=== PATIENT | male | born 1990 | race Caucasian/White ===

== ENCOUNTER 2022-01-03 22:58 | Emergency (ER) | payer MEDICAID, SELFPAY ==
--- NOTE | ~2022-01-03 | XR_ITS ---
EXAMINATION: XR CLAVICLE, LEFT CLINICAL INFORMATION: Loose screws. COMPARISON: Chest radiograph 01/03/2022. TECHNIQUE: Two views of the left clavicle. FINDINGS: There is plate and screw fixation of the left clavicle. There is a separate cannulated screw which is separate from the plate. This appears to be within the bone and is likely placed separately at the previous site of fracture, though there is no prior to compare. Clavicle appears intact. The acromioclavicular joint is well aligned. XR/XR clavicle LT IMPRESSION: Left clavicle with hardware in place. There is a separate cannulated screw seen which appears to be within the bone and separate from the plate. No prior to be able to compare for stability. The bone is intact.
--- NOTE | ~2022-01-03 | XR_ITS ---
EXAMINATION: XR CHEST CLINICAL INFORMATION: Shortness of breath and asthma exacerbation. COMPARISON: Chest radiograph dated from 05/07/2016. TECHNIQUE: PA view of the chest was obtained. FINDINGS: Normal appearance of the cardiomediastinal silhouette. No focal airspace opacities, pleural effusions or pneumothorax. Fixation plate in the left clavicle. From right to left the fifth screw is superiorly displaced questioning loosening/fracture of the hardware at this site. No acute osseous abnormalities. XR/XR chest 1V IMPRESSION: No acute cardiopulmonary findings. Questionable loosening/fracture of one of the screws of the fixation plate within the left clavicle. Correlate with prior images and for point tenderness.
[2022-01-03 23:01] VITALS: BP 136/81; PULSE 101; RESP 22; TEMP 36.4; O2SAT 96; BMI 28.8
--- NOTE | 2022-01-03 23:59 | ED_ITS ---
HPI - Asthma General Chief Complaint: Asthma Stated Complaint: asthma Time Seen by Provider: 01/03/22 23:15 Source: patient Mode of arrival: ambulatory Limitations: no limitations History of Present Illness HPI Narrative: Patient is a 31-year-old male with a past medical history of asthma. He presents emergency department today for evaluation concern for asthma exacerbation with shortness of breath and wheezing after exposure to known allergen; cat. He has been using his albuterol inhaler multiple times without significant relief in addition to albuterol nebulizer. Reports feeling well prior to allergen exposure. Denies possible sick contacts, COVID-19 exposure. Denies fevers, chills, nasal congestion, sore throat, chest pain, palpitations, nausea, vomiting, abdominal pain. Reports that he typically requires oral steroids at least twice a year for asthma exacerbation. Denies any prior intubations. MD complaint: asthma attack , shortness of breath and wheezing Onset (ago): hour(s) Context: allergen exposure Treatments Prior to Arrival: inhaled bronchodilator Related Data Previous Rx's Medication Instructions Recorded prednisone 20 mg tablet 40 mg PO DAILY 5 Days #10 tab 01/04/22 Allergies Allergy/AdvReac Type Severity Reaction Status Date / Time shellfish derived Allergy Unknown HIVES Verified 01/04/22 00:14 [SHELLFISH DERIVED] shell fish Allergy Unknown Hives Uncoded 01/04/22 00:14 Review of Systems Review of Systems: Constitutional : No Fever, No Chills ENT/Mouth : No Hoarseness, No sore throat, No Rhinorrhea Eyes: No Redness, No Discharge, No Vision Changes Cardiovascular : No Chest Pain, positive SOB, positive Dyspnea on Exertion, No Edema Respiratory : no Cough, No Sputum, positive Wheezing, Gastrointestinal : No Nausea, No Vomiting, No Diarrhea, No abdominal Pain Genitourinary : No Dysuria, No Hematuria Musculoskeletal : No joint pain, No Myalgias Skin : No rash Neuro : No Weakness, No Numbness, No Headache Psych : No anxiety, depression Heme/Lymph: No Bruising, No Bleeding Endocrine : No Polyuria, No Polydipsia Yes all other systems are reviewed and are negative [facility] Past Medical History Attestation statement: The following information was validated with the patient. Source: old records reviewed Social History Social History Advance Directives: No Advance Directives Information Provided: Yes Physical Exam Vital Signs: Vital Signs: Last Vital Signs Temp 97.5 F 01/03/22 23:01 Pulse 87 01/04/22 00:10 Resp 18 01/04/22 00:10 BP 136/81 01/03/22 23:01 Pulse Ox 96 01/03/22 23:01 BMI result Body Mass Index 28.8 Vital signs have been reviewed as normal and appeared to be correct. Blood pressure normal.? Heart rate normal.? Respiration rate normal. Temperature normal.? Oxygen saturation normal. Appearance: Alert.?Oriented to person, place and time. No acute distress.?Normal affect. Eyes: Pupils equal, round and reactive to light.? ENT: Pharynx normal.?? Neck: Normal inspection.? Neck supple.?? CVS: Heart sounds normal. Normal heart rate and rhythm.? Pulses normal.?? Respiratory: No respiratory distress, no increased work of breathing or use of accessory muscles. Lung sounds tight with expiratory wheezing bilaterally? Abdomen: Soft and non-tender. Normoactive bowel sounds. No pulsatile mass.?? Skin: Skin warm and dry.? Normal skin color.? Normal skin turgor.?? Extremities: No lower extremity edema.? No calf ttp? Neuro: Moves all extremities spontaneously. Sensation intact bilaterally. CN II- XII intact. No focal neuro deficits. Ambulates with normal steady gait. Course Course Course Narrative: Patient is a 31-year-old male being evaluated for concerns of an asthma exacerbation. Lung sounds are tight bilaterally with expiratory wheezing will provide prednisone 60 mg p.o. and albuterol 7.5 mg nebulizer and then will re- evaluate. History and physical exam not consistent with status asthmaticus, pneumothorax, no risk factors or chest pain to suggest ACS, Wells score 0 therefore unlikely to be PE. Chest x-ray obtained while in triage reveals no acute pathology, however there is incidental finding of questionable loosening/fracture of 1 of the screws of the fixation plate within the left clavicle. Patient reports repair in 2019 at [facility] after an accident. He is followed by Orthopedic still for ongoing leg pain. Denies any recent injuries or fall to the chest or arm. Denies pain, has no point tenderness over the left clavicle. Reevaluation(s) Reevaluation #1: Reports significant improvement in shortness of breath, improved air flow bilaterally, some persistent expiratory wheezing but much improved in comparison. Discussed plans for discharge home with short course of prednisone, and continued use of MDI and nebulizer clear discussed reasons to return to the emergency department. Advised to contact his primary care provider to schedule follow-up appointment in 1-3 days. In addition, advised to contact his orthopedic provider for further follow-up on the loosened screw in the left clavicle. Time: 00:42 [facility] - Asthma Medical Records Attestation: I reviewed the patient's medical records. Imaging Data Chest x-ray: Radiologist's impression: XR/XR chest 1V IMPRESSION: No acute cardiopulmonary findings. ? Questionable loosening/fracture of one of the screws of the fixation plate within the left clavicle. Correlate with prior images and for point tenderness. Discharge Plan Discharge Clinical Impression: Asthma with acute exacerbation Patient Disposition: Home, Self-Care Instructions: Asthma (ED) Additional Instructions: Take prednisone 40 mg daily for 5 days and use your inhalers/nebulizer as prescribed. Avoid allergens. You may return to the emergency department for any new or worsening symptoms or concerns. Please follow-up with your primary care doctor in 1-3 days. Additionally, as mentioned 1 of the screws in your left clavicle repair appears loose on x-ray. You should contact your orthopedic provider tomorrow to discuss this finding and schedule a follow-up appointment Prescriptions: New prednisone 20 mg tablet 40 mg PO DAILY 5 Days Qty: 10 0RF
[2022-01-04] MEDS: Albuterol Sulfate (0.083%) 2.5 MG/3 ML VIAL.NEB 7.5 MG INHALE (00:09)
[2022-01-04 00:10] VITALS: PULSE 87; RESP 18; O2SAT 98
[2022-01-04] MEDS: predniSONE 20 MG TABLET 60 MG PO (00:15)
[2022-01-04 00:54] VITALS: BP 114/67; PULSE 83; RESP 17; O2SAT 97
--- NOTE | 2022-01-04 01:04 | ED.ASTHMA ---
HPI - Asthma General Chief Complaint: Asthma Stated Complaint: asthma Time Seen by Provider: 01/03/22 23:15 Source: patient Mode of arrival: ambulatory Limitations: no limitations History of Present Illness Context: allergen exposure Treatments Prior to Arrival: inhaled bronchodilator Related Data Previous Rx's Medication Instructions Recorded prednisone 20 mg tablet 40 mg PO DAILY 5 Days #10 tab 01/04/22 Allergies Allergy/AdvReac Type Severity Reaction Status Date / Time shellfish derived Allergy Unknown HIVES Verified 01/04/22 00:14 [SHELLFISH DERIVED] shell fish Allergy Unknown Hives Uncoded 01/04/22 00:14 PMFSH Social History Social History Advance Directives: No Advance Directives Information Provided: Yes Physical Exam Vital Signs: Vital Signs: Last Vital Signs Temp 97.5 F 01/03/22 23:01 Pulse 83 01/04/22 00:54 Resp 17 01/04/22 00:54 BP 114/67 01/04/22 00:54 Pulse Ox 97 01/04/22 00:54 BMI result Body Mass Index 28.8 Discharge Plan Discharge Clinical Impression: Asthma with acute exacerbation Patient Disposition: Home, Self-Care Instructions: Asthma (ED) Additional Instructions: Take prednisone 40 mg daily for 5 days and use your inhalers/nebulizer as prescribed. Avoid allergens. You may return to the emergency department for any new or worsening symptoms or concerns. Please follow-up with your primary care doctor in 1-3 days. Additionally, as mentioned 1 of the screws in your left clavicle repair appears loose on x-ray. You should contact your orthopedic provider tomorrow to discuss this finding and schedule a follow-up appointment Prescriptions: New prednisone 20 mg tablet 40 mg PO DAILY 5 Days Qty: 10 0RF
== END 2022-01-04 01:10 | disposition home or self-care (01) ==
PROVIDERS: Emergency Provider Internal Medicine; PCP Internal Medicine
DX: J45.901 Unspecified asthma with (acute) exacerbation (principal)
CPT/HCPCS: 71045; 73000; 94640; 94644; 99284

== ENCOUNTER 2022-11-09 15:49 | Outpatient (REF) | payer MEDICAID, SELFPAY ==
--- NOTE | ~2022-11-09 | XR_ITS ---
EXAMINATION: XR SINUSES CLINICAL INFORMATION: Chronic sinusitis. COMPARISON: None TECHNIQUE: 4 views of the sinuses. FINDINGS: The paranasal sinuses are well-aerated and clear. The bony sinus kessler are intact. The mastoid sinuses are clear. XR/XR sinus min 3V IMPRESSION: Unremarkable sinus exam.
== END 2022-11-09 15:50 | disposition home or self-care (01) ==
LOC: HO.XRAY 15:49
PROVIDERS: PCP Internal Medicine; Visit Provider Physician Assistant
DX: J32.9 Chronic sinusitis, unspecified (principal)
CPT/HCPCS: 70220

== ENCOUNTER 2022-11-19 21:05 | Emergency (ER) | payer MEDICAID, SELFPAY ==
[2022-11-19 21:12] VITALS: BP 149/101; PULSE 138; RESP 26; TEMP 37.1; O2SAT 94; BMI 29.6
--- NOTE | 2022-11-19 21:14 | PC.NURSE ---
Pt noted to have a difficulty time breathing. Audible wheezing noted. DR. Thomas at pt side. PEr provider Rn call Respiratory therapist. They report they are on their way.
--- NOTE | 2022-11-19 21:18 | ED_ITS ---
HPI - Asthma General Chief Complaint: Dyspnea Stated Complaint: Hard time breathing Time Seen by Provider: 11/19/22 21:14 Source: patient Mode of arrival: ambulatory Limitations: no limitations History of Present Illness HPI Narrative: Patient history of asthma with more sick for last 6 months been using inhaler mo re often. Patient has a new girlfriend who has cats at home and she frequently visits his house likely the cause for frequent episodes of asthma. Over the weekend patient stated the friend house today since morning notice wheezing got worse during the day tried multiple puffs and nebulizing treatment without much relief no chest pain no fever no chills Related Data Previous Rx's Medication Instructions Recorded prednisone 20 mg tablet 40 mg PO DAILY 5 days #10 tabs 01/04/22 montelukast 10 mg tablet 10 mg PO QPM #30 tabs 11/19/22 (Singulair) prednisone 20 mg tablet 40 mg PO DAILY #10 tabs 11/19/22 Allergies Allergy/AdvReac Type Severity Reaction Status Date / Time shellfish derived Allergy Unknown HIVES Verified 01/04/22 00:14 [SHELLFISH DERIVED] shell fish Allergy Unknown Hives Uncoded 01/04/22 00:14 Review of Systems Review of Systems: Yes all other systems are reviewed and are negative [facility] Social History Social History Advance Directives: No Advance Directives Information Provided: Yes Physical Exam Vital Signs: Vital Signs: Last Vital Signs Temp 98.8 F 11/19/22 21:12 Pulse 124 H 11/19/22 22:25 Resp 20 11/19/22 22:25 BP 149/101 H 11/19/22 21:12 Pulse Ox 94 11/19/22 21:12 O2 Del Method 11/19/22 21:12 BMI result Body Mass Index 29.6 Appearance: Alert. Oriented X3. In moderate distress unable to speak full sentence Eyes: PERRLA, No Nystagmus ENT: Pharynx normal. Oral Mucosa moist Neck: Normal inspection. Neck supple. CVS: Normal heart rate and rhythm. Pulses normal. Respiratory: Moderate respiratory distress with bilateral wheezing Abdomen: Soft and nontender. Bowel sounds are present, no mass palpable, no CVA tenderness Skin: Skin warm and dry. Normal skin color. Normal skin turgor. Extremities: No lower extremity edema. No calf tenderness Neuro: Oriented X 3. No motor deficit. Medications Administered Discontinued Medications Generic Name Dose Route Start Last Admin Trade Name Dilipq PRN Reason Stop Dose Admin Albuterol Sulfate 7.5 mg 11/19/22 22:17 11/19/22 22:23 Albuterol Sulfate (0.083%) 2.5 Mg/3 Ml Vial.Neb INHALE 11/19/22 22:18 7.5 mg ONCE ONE Administration Albuterol Sulfate 7.5 mg/ 0 mg 11/19/22 21:14 11/19/22 21:21 Albuterol/Ipratropium 3 ml INHALE 11/19/22 21:15 1 each ONCE ONE Administration Dexamethasone Sodium Phosphate 10 mg 11/19/22 21:14 11/19/22 21:20 Dexamethasone Sod Phosphate 10 Mg/Ml Vial IVPUSH 11/19/22 21:15 10 mg ONCE ONE Administration Magnesium Sulfate 2 gm in 50 mls @ 100 mls/hr 11/19/22 21:14 11/19/22 21:20 Magnesium Sulfate/H2o IV 11/19/22 21:43 100 mls/hr ONCE ONE Administration Sodium Chloride 1,000 mls @ 999 mls/hr 11/19/22 21:16 11/19/22 21:21 Ns IV 11/19/22 22:16 999 mls/hr .Q1H1M ONE Administration Medical Decision Making Medical Decision Making [facility] Narrative: Patient's status asthmaticus received continuous nebulizing treatment x2 IV steroid IV medication feeling much better saturating 94% room air will discharge patient home Lab Data [facility] Lab Attestation statement: I reviewed the patient's lab results. 11/19/22 21:22 11/19/22 21:22 Labs: Lab Results 11/19/22 11/19/22 Range/Units 21:22 21:22 WBC 11.4 H (4.8-10.8) X10*3/uL RBC 6.23 H (4.60-5.80) X10*6/uL Hgb 17.4 (14.0-18.0) g/dl Hct 50.4 (42.0-52.0) % MCV 80.9 (80.0-98.0) fL MCH 27.9 (27.0-33.0) pg MCHC 34.5 (31.0-36.0) g/dl RDW 12.7 (11.0-16.0) % Plt Count 267 (160-400) X10*3/uL MPV 8.7 L (9.4-12.4) fL Immature Gran % (Auto) 0.2 (0.0-0.4) % Neut % (Auto) 37.5 L (45-73) % Lymph % (Auto) 45.7 H (20-40) % [place] % (Auto) 8.5 (2-11) % Eos % (Auto) 7.7 H (0-4) % Baso % (Auto) 0.4 (0-2) % Lymph # (Auto) 5.2 H (1.2-4.9) X10*3/uL [place] # (Auto) 1.0 (0.1-1.2) X10*3/uL Eos # (Auto) 0.9 H (0.0-0.4) X10*3/uL Baso # (Auto) 0.1 (0.0-0.2) X10*3/uL Abs Immat Gran (auto) 0.02 (0.00-0.03) X10*3/uL Absolute Neuts (auto) 4.3 (2.0-8.3) x10*3/uL Absolute Nucleated RBC 0.000 (0.0-0.012) X10*3/uL Nucleated RBC % (auto) 0.0 (0.0-0.2) /100WBC Smear Tech's Comments VERIFIED Sodium 145 (135-145) mmol/L Potassium 3.8 (3.3-5.1) mmol/L Chloride 108 (96-108) mmol/L Carbon Dioxide 24 (22-29) mmol/L Anion Gap 17 (12-20) BUN 8 L (9-16) mg/dL Creatinine 1.01 (0.5-1.4) mg/dL Estim Creat Clear Calc 115.5 Estimated GFR > 60 Random Glucose 118 H (60-115) mg/dL Calcium 10.2 (8.4-10.2) mg/dL Discharge Plan Discharge Clinical Impression: Asthmaticus, status Patient Disposition: Home, Self-Care Instructions: Asthma (ED) Additional Instructions: Avoid contact with cats Continued to use a nebulizing/inhaler every 4-6 hours as advised Prednisone and Singulair as prescribed Follow the PCP if not better Prescriptions: New prednisone 20 mg tablet 40 mg PO DAILY Qty: 10 0RF montelukast [Singulair] 10 mg tablet 10 mg PO QPM Qty: 30 0RF No Action prednisone 20 mg tablet 40 mg PO DAILY 5 Days Qty: 10 0RF
[2022-11-19] MEDS: Magnesium Sulfate/H2O 2 GM/50 ML PIGGYBACK IV (21:20)
[2022-11-19] MEDS: dexAMETHasone sod phosphate 10 MG/ML VIAL IVPUSH (21:20)
[2022-11-19] MEDS: 0.9 % Sodium Chloride 1,000 ML 999 ML IV (21:21)
[2022-11-19 21:22] VITALS: PULSE 120; RESP 20; O2SAT 95
[2022-11-19 21:35] LABS: Basophils Absolute Auto 0.1 X10*3/uL (0.0-0.2); Basophils Percent Auto 0.4 % (0-2); Eosinophils Absolute Auto 0.9 X10*3/uL (0.0-0.4); Eosinophils Percent Auto 7.7 % (0-4); Hematocrit 50.4 % (42.0-52.0); Hemoglobin 17.4 g/dl (14.0-18.0); Imm Gran Abs Auto 0.02 X10*3/uL (0.00-0.03); Imm Gran Pct Auto 0.2 % (0.0-0.4); Lymphocytes Absolute Auto 5.2 X10*3/uL (1.2-4.9); Lymphocytes Percent Auto 45.7 % (20-40); MANUAL DIFF FLAG SCAN; Mean Corpuscular HGB Conc 34.5 g/dl (31.0-36.0); Mean Corpuscular Hemoglobin 27.9 pg (27.0-33.0); Mean Corpuscular Volume 80.9 fL (80.0-98.0); Mean Platelet Volume 8.7 fL (9.4-12.4); Monocytes Percent Auto 8.5 % (2-11); Neutrophils Absolute Auto 4.3 x10*3/uL (2.0-8.3); Neutrophils Percent Auto 37.5 % (45-73); Platelet Count 267 X10*3/uL (160-400); Red Blood Count 6.23 X10*6/uL (4.60-5.80); Red Cell Distribution Width 12.7 % (11.0-16.0); SCAN SMEAR FLAG 1; White Blood Count 11.4 X10*3/uL (4.8-10.8)
[2022-11-19 21:41] LABS: Anion Gap 17 (12-20); Blood Urea Nitrogen 8 mg/dL (9-16); Calcium 10.2 mg/dL (8.4-10.2); Carbon Dioxide 24 mmol/L (22-29); Chloride 108 mmol/L (96-108); Creatinine Clr Calc Pharmacy 115.5; Estimated Glomerular Filt Rate > 60; Glucose Random 118 mg/dL (60-115); Potassium 3.8 mmol/L (3.3-5.1); Sodium 145 mmol/L (135-145)
[2022-11-19 22:02] LABS: SLIDE REVIEW VERIFIED
[2022-11-19] MEDS: Albuterol Sulfate (0.083%) 2.5 MG/3 ML VIAL.NEB 7.5 MG INHALE (22:23)
--- NOTE | 2022-11-19 22:23 | PC.NURSE ---
poison prevention returned call; order for EKG every 2 hours for 3 hours then every 4 hours. labs to order mag, phos, LFT and tylenol. provider made aware and jasper.
[2022-11-19 22:25] VITALS: PULSE 124; RESP 20; O2SAT 96
--- NOTE | 2022-11-19 22:25 | PC.NURSE ---
dr brannon made aware of poison preventions phone conversation. no further orders needed per dr brannon.
[2022-11-19 22:52] VITALS: BP 114/61; PULSE 101; RESP 13; TEMP 36.6; O2SAT 97
== END 2022-11-19 23:59 | disposition home or self-care (01) ==
PROVIDERS: Emergency Provider Internal Medicine; PCP Internal Medicine
DX: J45.909 Unspecified asthma, uncomplicated (principal); R06.02 Shortness of breath; Z79.899 Other long term (current) drug therapy
CPT/HCPCS: 36415; 80048; 85025; 94640; 96361; 96365; 96375; 99284; J1100; J3475

== ENCOUNTER 2023-10-25 10:00 | Outpatient (RCR) | payer MEDICAID, SELFPAY | END 2023-11-06 09:48 | disposition home or self-care (01) | LOC: HO.PT 10:00 | PROVIDERS: PCP Internal Medicine; Visit Provider Surgery Vascular Surgery | DX: Z98.890 Other specified postprocedural states (principal) | CPT/HCPCS: 97110; 97112; 97162; 97530 ==